=== PATIENT | female | born 1965 | race Native Hawaiian/Other Pacific Islander ===

== ENCOUNTER 2020-10-06 10:55 | Outpatient (CLI) | payer OTHER ==
[~2020-10-06] VITALS: Ht 152.4 cm; Wt 85.3 kg
== END 2020-10-06 22:00 | disposition home or self-care (01) ==
LOC: INF 10:55
PROVIDERS: ATTEND Family Medicine
DX: Z23 Encounter for immunization (principal); U07.1 COVID-19
CPT/HCPCS: 96365; M0244